=== PATIENT | female | born 1980 | race Two or more races ===

== ENCOUNTER 2024-03-02 13:51 | Outpatient (AMB) | payer OTHER, SELFPAY ==
--- NOTE | 2024-03-02 14:57 | A.OFFVIS_ITS ---
VS Expanded 03/02/24 15:03 BP 158/86 H Blood Pressure Location Rt brachial Blood Pressure Position Sitting Pulse 79 Pulse Source Pulse Oximeter Temp 97.8 F Temperature Source Temporal Artery Scan Pulse Oximetry 100 Oxygen Delivery Method Room Air Height 5 ft 2.5 in Intake Visit Reasons: metabolic group session Allergies azithromycin [From ZITHROMAX] Allergy (Severe, Verified 03/02/24 15:04) ANAPHYLAXIS acetaminophen [From VICODIN] Allergy (Intermediate, Verified 03/02/24 15:04) ITCHING prednisone [PREDNISONE] Allergy (Intermediate, Verified 03/02/24 15:04) RASH aspirin [ASPIRIN] Allergy (Mild, Verified 03/02/24 15:04) HIVES ibuprofen [IBUPROFEN] Allergy (Mild, Verified 03/02/24 15:04) HIVES Penicillins [PENICILLINS] Allergy (Mild, Verified 03/02/24 15:04) HIVES codeine [CODEINE] Allergy (Unknown, Verified 03/02/24 15:04) AGITATION From VICODIN Allergy (Intermediate, Uncoded 05/08/20 17:28) ITCHING From PERCOCET Allergy (Unknown, Uncoded 05/08/20 17:28) HIVES HPI Comments Details: Patient is a pleasant 43-year-old female who presents to the metabolic clinic. She has struggled with weight gain since trialing in-vitro fertilization therapy. She has been trialing diet and exercise and did have success in the past but since being placed on hormone therapy, she had significant weight gain. She has since discontinued IVF and had tubal ligation. She has interested in the metabolic clinic pathway although did have multiple questions about the surgical weight loss program. All of her questions were answered and at this time she would like to proceed in the metabolic clinic but may transition to a surgical option in the future. She wanted to discuss this with her . [facility] Medical History (Updated 03/02/24 @ 15:08 by Preethi Dalton CMA) Cyst, ovarian Surgical History (Updated 03/02/24 @ 15:08 by Preethi Daltno CMA) Hx of cholecystectomy Previous back surgery Family History (Updated 03/02/24 @ 15:10 by Preethi Dalton CMA) Mother Diabetes Hypertension Thyroid condition Cancer Father Back problem Hypertension Cancer Social History (Updated 03/02/24 @ 15:10 by Preethi Dalton CMA) Alcohol intake: never Patient Tobacco Use Status: Never used Tobacco Physical Exam Vital Signs: Last Vital Signs Temp 97.8 F 03/02/24 15:03 Pulse 79 03/02/24 15:03 BP 158/86 H 03/02/24 15:03 Pulse Ox 100 03/02/24 15:03 Oxygen Delivery Method Room Air 03/02/24 15:03 Assessment & Plan Assessment & Plan (1) Obesity (BMI 30-39.9): Code(s): E66.9 - Obesity, unspecified Category: Medical Plan: Patient was given my work cell phone so that she may communicate weekly with her weight and if she has any questions. She will use the right BMI samia to develop her meal plan and exercise plan. We will have her return in 1 week. Orders: Orders Basic Metabolic Panel 03/01/24 E66.9 - Obesity, unspecified Hemoglobin A1c 03/01/24 E66.9 - Obesity, unspecified
[2024-03-02 15:03] VITALS: BP 158/86; PULSE 79; TEMP 36.6; O2SAT 100
== END 2024-03-02 15:00 ==
LOC: HO.META 13:51
PROVIDERS: PCP Physician Assistant Medical; Visit Provider Physician Assistant Surgical
DX: E66.9 Obesity, unspecified (principal)

== ENCOUNTER → 2024-03-02 13:51 | Outpatient (BNVA) | payer OTHER, SELFPAY | PROVIDERS: PCP Physician Assistant Medical; Visit Provider Physician Assistant Surgical | DX: E66.9 Obesity, unspecified (principal) | CPT/HCPCS: 99453 ==

== ENCOUNTER → 2024-03-09 11:16 | Outpatient (BNVA) | payer OTHER, SELFPAY | PROVIDERS: PCP Physician Assistant Medical; Visit Provider Physician Assistant Surgical | DX: E66.9 Obesity, unspecified (principal) ==

== ENCOUNTER 2024-03-16 12:54 | Outpatient (AMB) | payer OTHER, SELFPAY ==
--- NOTE | 2024-03-16 12:17 | HO.OFFWMMET ---
VS Expanded 03/16/24 12:46 Height 5 ft 2.5 in Weight 214 lb 12.8 oz BMI 38.7 Intake Visit Reasons: Metabolic clinic Allergies azithromycin [From ZITHROMAX] Allergy (Severe, Verified 03/02/24 15:04) ANAPHYLAXIS acetaminophen [From VICODIN] Allergy (Intermediate, Verified 03/02/24 15:04) ITCHING prednisone [PREDNISONE] Allergy (Intermediate, Verified 03/02/24 15:04) RASH aspirin [ASPIRIN] Allergy (Mild, Verified 03/02/24 15:04) HIVES ibuprofen [IBUPROFEN] Allergy (Mild, Verified 03/02/24 15:04) HIVES Penicillins [PENICILLINS] Allergy (Mild, Verified 03/02/24 15:04) HIVES codeine [CODEINE] Allergy (Unknown, Verified 03/02/24 15:04) AGITATION From VICODIN Allergy (Intermediate, Uncoded 05/08/20 17:28) ITCHING From PERCOCET Allergy (Unknown, Uncoded 05/08/20 17:28) HIVES HPI Comments Details: Patient is a pleasant 43-year-old female who returns to the metabolic clinic. She was initially seen on 03/02/2024. She reports that she is trying to get to bed earlier. She is also changing shake to premier protein and bar to fit crunch and she is much more satisfied. Reports weight today of 214.8 lb with a BMI of 38. This equals 10.2 lb weight loss or 4.5% total body weight loss since initial visit. meal plan: per samia 5 sm meals per day Drinking 64 oz water exercise plan: videos at home, 45-60 minutes, 6 days per week, [id number] rojelio [facility] Medical History (Updated 03/02/24 @ 15:08 by Preethi Dalton CMA) Cyst, ovarian Surgical History (Updated 03/02/24 @ 15:08 by Preethi Dalton CMA) Hx of cholecystectomy Previous back surgery Family History (Updated 03/02/24 @ 15:10 by Preethi Dalton CMA) Mother Diabetes Hypertension Thyroid condition Cancer Father Back problem Hypertension Cancer Social History (Updated 03/02/24 @ 15:10 by Preethi Dalton CMA) Alcohol intake: never Patient Tobacco Use Status: Never used Tobacco Telehealth Telehealth Telehealth Platform: Telephone Location of provider rendering services: practice address Location of patient: address on file Patient Identification confirmed using: Name, : Yes Telehealth method: voice only Patient verbally consented to treatment: Yes Patient verbally consented to billing insurance company: Yes Patient informed of any privacy concerns related to visit: Yes Minutes spent on Phone/Video with Pt.: 20 Assessment & Plan Assessment & Plan (1) Obesity (BMI 30-39.9): Code(s): E66.9 - Obesity, unspecified Category: Medical Plan: Patient is doing very well. She has lost 10.2 lb. She is satisfied with her meal plan and is using the [employer] samia well. She continues to exercise and is very satisfied with her progress. We will continue current plans, follow-up in 1 week.
[2024-03-16 12:46] VITALS: BMI 38.7
== END 2024-03-16 12:54 | disposition home or self-care (01) ==
LOC: HO.HBS 12:54
PROVIDERS: PCP Physician Assistant Medical; Visit Provider Physician Assistant Surgical
DX: E66.9 Obesity, unspecified (principal); Z68.38 Body mass index [BMI] 38.0-38.9, adult
CPT/HCPCS: 99457

== ENCOUNTER → 2024-03-16 12:54 | Outpatient (BNVA) | payer OTHER, SELFPAY | PROVIDERS: PCP Physician Assistant Medical; Visit Provider Physician Assistant Surgical | DX: E66.9 Obesity, unspecified (principal) ==

== ENCOUNTER 2024-03-23 11:44 | Outpatient (AMB) | payer OTHER, SELFPAY ==
--- NOTE | 2024-03-23 11:35 | HO.OFFWMMET ---
VS Expanded 03/23/24 11:36 Height 5 ft 2.5 in Weight 212 lb BMI 38.2 Intake Visit Reasons: Metabolic clinic Allergies azithromycin [From ZITHROMAX] Allergy (Severe, Verified 03/02/24 15:04) ANAPHYLAXIS acetaminophen [From VICODIN] Allergy (Intermediate, Verified 03/02/24 15:04) ITCHING prednisone [PREDNISONE] Allergy (Intermediate, Verified 03/02/24 15:04) RASH aspirin [ASPIRIN] Allergy (Mild, Verified 03/02/24 15:04) HIVES ibuprofen [IBUPROFEN] Allergy (Mild, Verified 03/02/24 15:04) HIVES Penicillins [PENICILLINS] Allergy (Mild, Verified 03/02/24 15:04) HIVES codeine [CODEINE] Allergy (Unknown, Verified 03/02/24 15:04) AGITATION From VICODIN Allergy (Intermediate, Uncoded 05/08/20 17:28) ITCHING From PERCOCET Allergy (Unknown, Uncoded 05/08/20 17:28) HIVES HPI Comments Details: Patient is a pleasant 43-year-old female who returns to the metabolic clinic. She was initially seen on 03/02/2024. She reports that she is trying to get to bed earlier. She is also changing shake to premier protein and bar to fit crunch and she is much more satisfied. States she is happy with her meal plans as directed by [employer] samia. Scheduled for low back SI injections next by her occupational health specialist Exercise plan: stationary bike home video 6 x week, 45-60 min, 500 rojelio strength training w bands, 2-3 x per week Reports weight today of 2128 lb with a BMI of 38.2. This equals 13 lb weight loss or 5.7% total body weight loss since initial visit. [facility] Medical History (Updated 03/02/24 @ 15:08 by Preethi Dalton CMA) Cyst, ovarian Surgical History (Updated 03/02/24 @ 15:08 by Preethi Dalton CMA) Hx of cholecystectomy Previous back surgery Family History (Updated 03/02/24 @ 15:10 by Preethi Dalton CMA) Mother Diabetes Hypertension Thyroid condition Cancer Father Back problem Hypertension Cancer Social History (Updated 03/02/24 @ 15:10 by Preethi Dalton CMA) Alcohol intake: never Patient Tobacco Use Status: Never used Tobacco Telehealth Telehealth Telehealth Platform: Telephone Location of provider rendering services: practice address Location of patient: address on file Patient Identification confirmed using: Name, : Yes Telehealth method: voice only Patient verbally consented to treatment: Yes Patient verbally consented to billing insurance company: Yes Patient informed of any privacy concerns related to visit: Yes Minutes spent on Phone/Video with Pt.: 12 Assessment & Plan Assessment & Plan (1) Obesity (BMI 30-39.9): Code(s): E66.9 - Obesity, unspecified Category: Medical Plan: Patient is doing well overall. She will continue following the right BMI samia plan for her meal plan and exercise plan. She states that she is fixing her stationary bike seat and expect to be able to use that this coming week. She is scheduled for a low back injection through her occupational health specialist next week. She will continue to text with any questions or concerns and I will have her follow-up in approximately 2 weeks given the spine injection next week. Patient has done exceptionally well, lost 13 lb in the last 3 weeks.
[2024-03-23 11:36] VITALS: BMI 38.2
== END 2024-03-23 11:54 | disposition home or self-care (01) ==
LOC: HO.HBS 11:44
PROVIDERS: PCP Physician Assistant Medical; Visit Provider Physician Assistant Surgical
DX: E66.9 Obesity, unspecified (principal); Z68.38 Body mass index [BMI] 38.0-38.9, adult
CPT/HCPCS: 99457

== ENCOUNTER → 2024-03-23 11:44 | Outpatient (BNVA) | payer OTHER, SELFPAY | PROVIDERS: PCP Physician Assistant Medical; Visit Provider Physician Assistant Surgical | DX: E66.9 Obesity, unspecified (principal) ==

== ENCOUNTER 2024-04-06 12:42 | Outpatient (AMB) | payer OTHER, SELFPAY ==
--- NOTE | 2024-04-06 12:23 | MHC.OFFVISWM ---
VS Expanded 04/06/24 12:24 Height 5 ft 2.5 in Weight 203 lb 4 oz BMI 36.6 Intake Visit Reasons: Metabolic clinic Allergies azithromycin [From ZITHROMAX] Allergy (Severe, Verified 03/02/24 15:04) ANAPHYLAXIS acetaminophen [From VICODIN] Allergy (Intermediate, Verified 03/02/24 15:04) ITCHING prednisone [PREDNISONE] Allergy (Intermediate, Verified 03/02/24 15:04) RASH aspirin [ASPIRIN] Allergy (Mild, Verified 03/02/24 15:04) HIVES ibuprofen [IBUPROFEN] Allergy (Mild, Verified 03/02/24 15:04) HIVES Penicillins [PENICILLINS] Allergy (Mild, Verified 03/02/24 15:04) HIVES codeine [CODEINE] Allergy (Unknown, Verified 03/02/24 15:04) AGITATION From VICODIN Allergy (Intermediate, Uncoded 05/08/20 17:28) ITCHING From PERCOCET Allergy (Unknown, Uncoded 05/08/20 17:28) HIVES HPI Comments Details: Patient is a pleasant 43-year-old female who returns to the metabolic clinic. She was initially seen on 03/02/2024. She reports that she is trying to get to bed earlier. She is also changing shake to premier protein and bar to fit crunch and she is much more satisfied. States she is happy with her meal plans as directed by [employer] samia. Had low back SI injections last by her client success specialist. It was painful but now much better. Complains of constipation BM every 3-4 days Meal plan: Premier protein 1/2 scoop 2 x per day atkins bar 1-1 1/2 meal 7 folrs protein and 7 forks veggies Exercise plan: stationary bike home video 6 x week, 45-60 min, 500-600 rojelio strength training w bands, 2-3 x per week Reports weight today of 203.4 lb with a BMI of 36.1. This equals 21.6 lb weight loss or 9.6% total body weight loss since initial visit. [facility] Medical History (Updated 03/02/24 @ 15:08 by Preethi Dalton CMA) Cyst, ovarian Surgical History (Updated 03/02/24 @ 15:08 by Preethi Dalton CMA) Hx of cholecystectomy Previous back surgery Family History (Updated 03/02/24 @ 15:10 by Preethi Dalton CMA) Mother Diabetes Hypertension Thyroid condition Cancer Father Back problem Hypertension Cancer Social History (Updated 03/02/24 @ 15:10 by Preethi Dalton CMA) Alcohol intake: never Patient Tobacco Use Status: Never used Tobacco Assessment & Plan Assessment & Plan Medications: New sennosides (senna) 17.2 mg (2 x 8.6 mg) PO BEDTIME PRN 90 tabs 0RF constipation
[2024-04-06 12:24] VITALS: BMI 36.6
--- NOTE | 2024-04-06 12:38 | HO.OFFWMMET ---
VS Expanded 04/06/24 12:24 Height 5 ft 2.5 in Weight 203 lb 4 oz BMI 36.6 Intake Visit Reasons: Metabolic clinic Allergies azithromycin [From ZITHROMAX] Allergy (Severe, Verified 03/02/24 15:04) ANAPHYLAXIS acetaminophen [From VICODIN] Allergy (Intermediate, Verified 03/02/24 15:04) ITCHING prednisone [PREDNISONE] Allergy (Intermediate, Verified 03/02/24 15:04) RASH aspirin [ASPIRIN] Allergy (Mild, Verified 03/02/24 15:04) HIVES ibuprofen [IBUPROFEN] Allergy (Mild, Verified 03/02/24 15:04) HIVES Penicillins [PENICILLINS] Allergy (Mild, Verified 03/02/24 15:04) HIVES codeine [CODEINE] Allergy (Unknown, Verified 03/02/24 15:04) AGITATION From VICODIN Allergy (Intermediate, Uncoded 05/08/20 17:28) ITCHING From PERCOCET Allergy (Unknown, Uncoded 05/08/20 17:28) HIVES HPI Comments Details: Patient is a pleasant 43-year-old female who returns to the metabolic clinic. She was initially seen on 03/02/2024. She reports that she is trying to get to bed earlier. She is also changing shake to premier protein and bar to atkins and she is much more satisfied. States she is happy with her meal plans as directed by [employer] samia. Had low back SI injections last by her curriculum development specialist. It was painful but now much better. Complains of constipation BM every 3-4 days, but reflux is much better. Only requiring PPI once daily Meal plan: Premier protein 1/2 scoop 2 x per day atkins bar 1-1 1/2 meal 7 folrs protein and 7 forks veggies Exercise plan: stationary bike home video 6 x week, 45-60 min, 500-600 rojelio strength training w bands, 2-3 x per week Reports weight today of 203.4 lb with a BMI of 36.1. This equals 21.6 lb weight loss or 9.6% total body weight loss since initial visit. [facility] Medical History (Updated 03/02/24 @ 15:08 by Preethi Dalton CMA) Cyst, ovarian Surgical History (Updated 03/02/24 @ 15:08 by Preethi Dalton CMA) Hx of cholecystectomy Previous back surgery Family History (Updated 03/02/24 @ 15:10 by Preethi Dalton CMA) Mother Diabetes Hypertension Thyroid condition Cancer Father Back problem Hypertension Cancer Social History (Updated 03/02/24 @ 15:10 by Preethi Dalton CMA) Alcohol intake: never Patient Tobacco Use Status: Never used Tobacco Physical Exam Vital Signs: BMI result Body Mass Index 36.6 Quality Reporting (2019) Adult ([facility] 138/69) Body Mass Index: 36.6 Telehealth Telehealth Telehealth Platform: Telephone Location of provider rendering services: practice address Location of patient: address on file Patient Identification confirmed using: Name, : Yes Telehealth method: voice only Patient verbally consented to treatment: Yes Patient verbally consented to billing insurance company: Yes Patient informed of any privacy concerns related to visit: Yes Minutes spent on Phone/Video with Pt.: 15 Assessment & Plan Assessment & Plan (1) Obesity (BMI 30-39.9): Code(s): E66.9 - Obesity, unspecified Category: Medical Plan: Overall, patient is doing very well. She is making tremendous progress. She continues with the meal plan as directed from the [employer]. She has been exercising as she is able given the recent back injections. She is going to [place] to bring back her mother. She will come back to the clinic in approximately 2 weeks Add senna for constipation Medications: New sennosides (senna) 17.2 mg (2 x 8.6 mg) PO BEDTIME PRN 90 tabs 0RF constipation
[2024-04-06 12:40] VITALS: BMI 36.6
== END 2024-04-06 12:50 | disposition home or self-care (01) ==
LOC: HO.HBS 12:42
PROVIDERS: PCP Physician Assistant Medical; Visit Provider Physician Assistant Surgical
DX: E66.9 Obesity, unspecified (principal); Z68.36 Body mass index [BMI] 36.0-36.9, adult
CPT/HCPCS: 99457

== ENCOUNTER → 2024-04-06 12:42 | Outpatient (BNVA) | payer OTHER, SELFPAY | PROVIDERS: PCP Physician Assistant Medical; Visit Provider Physician Assistant Surgical | DX: E66.9 Obesity, unspecified (principal) ==

== ENCOUNTER 2024-04-20 12:41 | Outpatient (AMB) | payer OTHER, SELFPAY ==
--- NOTE | 2024-04-20 08:25 | A.OFFVIS_ITS ---
VS Expanded 04/20/24 08:26 Height 5 ft 2.5 in Weight 199 lb 4 oz BMI 35.9 Intake Visit Reasons: Metabolic clinic Allergies azithromycin [From ZITHROMAX] Allergy (Severe, Verified 03/02/24 15:04) ANAPHYLAXIS acetaminophen [From VICODIN] Allergy (Intermediate, Verified 03/02/24 15:04) ITCHING prednisone [PREDNISONE] Allergy (Intermediate, Verified 03/02/24 15:04) RASH aspirin [ASPIRIN] Allergy (Mild, Verified 03/02/24 15:04) HIVES ibuprofen [IBUPROFEN] Allergy (Mild, Verified 03/02/24 15:04) HIVES Penicillins [PENICILLINS] Allergy (Mild, Verified 03/02/24 15:04) HIVES codeine [CODEINE] Allergy (Unknown, Verified 03/02/24 15:04) AGITATION From VICODIN Allergy (Intermediate, Uncoded 05/08/20 17:28) ITCHING From PERCOCET Allergy (Unknown, Uncoded 05/08/20 17:28) HIVES HPI Comments Details: Patient is a very pleasant 43-year-old female who returns to the metabolic clinic. She initially presented in mid 03/10/2024, 03/02/2024 with a weight of 225 lb. Weight today is 199.4 lb with a BMI of 35.3. She has lost 25.6 lb or 11.3% total body weight loss. She has been using the right BMI dot com applicat ion. Meal plan: Premier protein 1/2 scoop 2 x per day atkins bar 1-1 1/2 meal 7 folks protein and 7 forks veggies Exercise plan: stationary bike home video 7 x week, 45-60 min, 600 rojelio strength training w bands, 2-3 x per week [facility] Medical History (Updated 03/02/24 @ 15:08 by Preethi Dalton CMA) Cyst, ovarian Surgical History (Updated 03/02/24 @ 15:08 by Preethi Dalton CMA) Hx of cholecystectomy Previous back surgery Family History (Updated 03/02/24 @ 15:10 by Preethi Dalton CMA) Mother Diabetes Hypertension Thyroid condition Cancer Father Back problem Hypertension Cancer Social History (Updated 03/02/24 @ 15:10 by Preethi Dalton CMA) Alcohol intake: never Patient Tobacco Use Status: Never used Tobacco
[2024-04-20 08:26] VITALS: BMI 35.9
--- NOTE | 2024-04-20 12:56 | HO.OFFWMMET ---
VS Expanded 04/20/24 08:26 Height 5 ft 2.5 in Weight 199 lb 4 oz BMI 35.9 Intake Visit Reasons: Metabolic clinic Key Account Director Required: No Allergies azithromycin [From ZITHROMAX] Allergy (Severe, Verified 03/02/24 15:04) ANAPHYLAXIS acetaminophen [From VICODIN] Allergy (Intermediate, Verified 03/02/24 15:04) ITCHING prednisone [PREDNISONE] Allergy (Intermediate, Verified 03/02/24 15:04) RASH aspirin [ASPIRIN] Allergy (Mild, Verified 03/02/24 15:04) HIVES ibuprofen [IBUPROFEN] Allergy (Mild, Verified 03/02/24 15:04) HIVES Penicillins [PENICILLINS] Allergy (Mild, Verified 03/02/24 15:04) HIVES codeine [CODEINE] Allergy (Unknown, Verified 03/02/24 15:04) AGITATION From VICODIN Allergy (Intermediate, Uncoded 05/08/20 17:28) ITCHING From PERCOCET Allergy (Unknown, Uncoded 05/08/20 17:28) HIVES Medication List - Last Reconciled 04/20/24 by SRAVANTHI Hernandez labetalol 200 mg PO BID levocetirizine 5 mg PO DAILY mecobalamin (vitamin B12) 5,000 mcg PO DAILY multivitamin with iron (Daily Vites/Iron tablet) 1 tab PO DAILY omeprazole 40 mg PO DAILY sennosides (senna) 17.2 mg (2 x 8.6 mg) PO BEDTIME PRN HPI Comments Details: Patient is a very pleasant 43-year-old female who returns to the metabolic clinic. She initially presented in mid 03/10/2024, 03/02/2024 with a weight of 225 lb. Weight today is 199.4 lb with a BMI of 35.3. She has lost 25.6 lb or 11.3% total body weight loss. She has been using the [employer] application. Meal plan: Premier protein 1/2 scoop 2 x per day atkins bar 1-1 1/2 meal 7 folks protein and 7 forks veggies Exercise plan: stationary bike home video 7 x week, 45-60 min, 600 rojelio strength training w bands, 2-3 x per week [facility] Medical History Cyst, ovarian Surgical History Hx of cholecystectomy Previous back surgery Family History Mother Diabetes Hypertension Thyroid condition Cancer Father Back problem Hypertension Cancer Social History Alcohol intake: never Patient Tobacco Use Status: Never used Tobacco Physical Exam Vital Signs: BMI result Body Mass Index 35.9 Quality Reporting (2020) Adult ([facility] 13810/13/68) Body Mass Index: 35.9 Telehealth Telehealth Telehealth Platform: Telephone Location of provider rendering services: practice address Location of patient: address on file Patient Identification confirmed using: Name, : Yes Telehealth method: voice only Patient verbally consented to treatment: Yes Patient verbally consented to billing insurance company: Yes Patient informed of any privacy concerns related to visit: Yes Minutes spent on Phone/Video with Pt.: 15 Assessment & Plan Assessment & Plan (1) Obesity (BMI 30-39.9): Code(s): E66.9 - Obesity, unspecified Category: Medical Plan: Patient is doing exceptionally well. She is following the meal plan on the right BMI samia. She is exercising appropriately she feels great. I have encouraged her to continue following the meal plans updating the samia weekly with her new weights. Encouraged continued exercise. Text weekly with weights and if any questions or concerns. We will have her return to the office in approximately 2 weeks.
[2024-04-20 12:57] VITALS: BMI 35.9
== END 2024-04-20 12:57 | disposition home or self-care (01) ==
LOC: HO.HBS 12:41
PROVIDERS: PCP Physician Assistant Medical; Visit Provider Physician Assistant Surgical
DX: E66.9 Obesity, unspecified (principal); Z68.35 Body mass index [BMI] 35.0-35.9, adult
CPT/HCPCS: 99457

== ENCOUNTER → 2024-04-20 12:41 | Outpatient (BNVA) | payer OTHER, SELFPAY | PROVIDERS: PCP Physician Assistant Medical; Visit Provider Physician Assistant Surgical | DX: E66.9 Obesity, unspecified (principal) ==

== ENCOUNTER 2024-05-04 11:08 | Outpatient (AMB) | payer OTHER, SELFPAY ==
--- NOTE | 2024-05-04 10:43 | HO.OFFWMMET ---
VS Expanded 05/04/24 10:45 Height 5 ft 2.5 in Weight 194 lb BMI 34.9 Body Fat % 43.4 Fat Free Mass 109.8 Visceral Fat Rating 16 Body Water % 38.8 Intake Visit Reasons: Metabolic clinic [employer] Counter Associate Required: No Allergies azithromycin [From ZITHROMAX] Allergy (Severe, Verified 03/02/24 15:04) ANAPHYLAXIS acetaminophen [From VICODIN] Allergy (Intermediate, Verified 03/02/24 15:04) ITCHING prednisone [PREDNISONE] Allergy (Intermediate, Verified 03/02/24 15:04) RASH aspirin [ASPIRIN] Allergy (Mild, Verified 03/02/24 15:04) HIVES ibuprofen [IBUPROFEN] Allergy (Mild, Verified 03/02/24 15:04) HIVES Penicillins [PENICILLINS] Allergy (Mild, Verified 03/02/24 15:04) HIVES codeine [CODEINE] Allergy (Unknown, Verified 03/02/24 15:04) AGITATION From VICODIN Allergy (Intermediate, Uncoded 05/08/20 17:28) ITCHING From PERCOCET Allergy (Unknown, Uncoded 05/08/20 17:28) HIVES Medication List - Last Reconciled 05/04/24 by SRAVANTHI Hernandez labetalol 200 mg PO BID levocetirizine 5 mg PO DAILY mecobalamin (vitamin B12) 5,000 mcg PO DAILY multivitamin with iron (Daily Vites/Iron tablet) 1 tab PO DAILY omeprazole 40 mg PO DAILY polyethylene glycol 3350 (Miralax) 17 grams PO DAILY HPI Comments Details: Patient is a very pleasant 43-year-old female who returns to the metabolic clinic. She initially presented in mid 03/10/2024, 03/02/2024 with a weight of 225 lb. Weight today is 194 lb with a BMI of 34.9. She has lost 31 lb or 13.7% total body weight loss. She has been using the [employer] application. Seen GI and there was concern over lifelong GERD, continued treatment conservatively, possible intervention in 6 months. Continues to follow w GI. Meal plan: Premier protein 1/2 scoop 2 x per day atkins bar 1-1 1/2 meal 6 folks protein and 6 forks veggies Exercise plan: stationary bike home video 7 x week, 45-60 min, 500-600 rojelio strength training w bands, 2-3 x per week PFSH Medical History Cyst, ovarian Surgical History Hx of cholecystectomy Previous back surgery Family History Mother Diabetes Hypertension Thyroid condition Cancer Father Back problem Hypertension Cancer Social History Alcohol intake: never Patient Tobacco Use Status: Never used Tobacco Telehealth Telehealth Telehealth Platform: Telephone Location of provider rendering services: practice address Location of patient: address on file Patient Identification confirmed using: Name, : Yes Telehealth method: voice only Patient verbally consented to treatment: Yes Patient verbally consented to billing insurance company: Yes Patient informed of any privacy concerns related to visit: Yes Minutes spent on Phone/Video with Pt.: 15 Assessment & Plan Assessment & Plan (1) Obesity (BMI 30-39.9): Code(s): E66.9 - Obesity, unspecified Category: Medical Plan: Patient is doing very well. She has lost 31 lb or 13.7% total body weight loss. She is following the right BMI samia. she is exercising appropriately. She will continue current meal plan and exercise plan. Encouraged to send weight is weekly. Text with any questions or concerns. Follow-up 2 weeks.
[2024-05-04 10:45] VITALS: BMI 34.9
== END 2024-05-04 11:27 | disposition home or self-care (01) ==
LOC: HO.HBS 11:08
PROVIDERS: PCP Physician Assistant Medical; Visit Provider Physician Assistant Surgical
DX: E66.9 Obesity, unspecified (principal); Z68.34 Body mass index [BMI] 34.0-34.9, adult
CPT/HCPCS: 99457

== ENCOUNTER → 2024-05-04 11:08 | Outpatient (BNVA) | payer OTHER, SELFPAY | PROVIDERS: PCP Physician Assistant Medical; Visit Provider Physician Assistant Surgical | DX: E66.9 Obesity, unspecified (principal) ==

== ENCOUNTER → 2024-05-25 13:30 | Outpatient (BNVA) | payer OTHER, SELFPAY | PROVIDERS: PCP Physician Assistant Medical; Visit Provider Physician Assistant Surgical | DX: E66.9 Obesity, unspecified (principal) ==

== ENCOUNTER 2024-06-08 13:17 | Outpatient (AMB) | payer OTHER, SELFPAY ==
--- NOTE | 2024-06-08 13:10 | HO.OFFWMMET ---
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 Allergies azithromycin [From ZITHROMAX] Allergy (Severe, Verified 03/02/24 15:04) ANAPHYLAXIS acetaminophen [From VICODIN] Allergy (Intermediate, Verified 03/02/24 15:04) ITCHING prednisone [PREDNISONE] Allergy (Intermediate, Verified 03/02/24 15:04) RASH aspirin [ASPIRIN] Allergy (Mild, Verified 03/02/24 15:04) HIVES ibuprofen [IBUPROFEN] Allergy (Mild, Verified 03/02/24 15:04) HIVES Penicillins [PENICILLINS] Allergy (Mild, Verified 03/02/24 15:04) HIVES codeine [CODEINE] Allergy (Unknown, Verified 03/02/24 15:04) AGITATION From VICODIN Allergy (Intermediate, Uncoded 05/08/20 17:28) ITCHING From PERCOCET Allergy (Unknown, Uncoded 05/08/20 17:28) HIVES Medication List - Last Reconciled 06/08/24 by SRAVANTHI Hernandez labetalol 100 mg PO DAILY levocetirizine 5 mg PO DAILY mecobalamin (vitamin B12) 5,000 mcg PO DAILY multivitamin with iron (Daily Vites/Iron tablet) 1 tab PO DAILY omeprazole 40 mg PO DAILY polyethylene glycol 3350 (Miralax) 17 grams PO DAILY HPI Comments Details: Patient is a very pleasant 43-year-old female who returns to the metabolic clinic. She initially presented in mid 03/10/2024, 03/02/2024 with a weight of 225 lb. Weight today is 180 lb with a BMI of 31.9. She has lost 45 lb or 20% total body weight loss. She has been using the [email or web address] application. Seen GI and there was concern over lifelong GERD, continued treatment conservatively, possible intervention in 6 months. Continues to follow w GI. She is dealing with the beginning of the school year. She has had noticed that her BP has been running 110-120/70-80, HR 60s-70s, no c/o lightheadedness, Labetalol decreased to 100 mg po daily Still has right LBP and hip pain, saw her insurance billing specialist Dr Garg in [place] and he referred her to [facility] [place] 06/18/24. Consideration for second opinion w ting invasive insurance billing specialist at [facility] tbd by pain management. Overall she is doing great and is very satisfied with her progress Meal plan: Premier protein 1/2 scoop 2 x per day atkins bar 1-1 1/2 meal 6 folks protein and 6 forks veggies Drinking 64-80 oz water Exercise plan: home video 7 x week, 60-90 min, 500-600 rojelio strength training w bands, 2-3 x per week PFSH Medical History Cyst, ovarian Surgical History Hx of cholecystectomy Previous back surgery Family History Mother Diabetes Hypertension Thyroid condition Cancer Father Back problem Hypertension Cancer Social History Alcohol intake: never Patient Tobacco Use Status: Never used Tobacco Telehealth Telehealth Telehealth Platform: Telephone Location of provider rendering services: practice address Location of patient: address on file Patient Identification confirmed using: Name, : Yes Telehealth method: voice only Patient verbally consented to treatment: Yes Patient verbally consented to billing insurance company: Yes Patient informed of any privacy concerns related to visit: Yes Minutes spent on Phone/Video with Pt.: 15 Assessment & Plan Assessment & Plan (1) Obesity (BMI 30-39.9): Code(s): E66.9 - Obesity, unspecified Category: Medical Plan: Making excellent progress utilizing the right BMI application. She has lost a total of 45 lb in 3 months or 20% total body weight loss. She will continue following the plans including meal plan and exercise. We will have her return to the clinic in approximately 3 weeks. Encouraged to continue to text weekly and with any questions or concerns.
[2024-06-08 13:11] VITALS: BMI 32.4
== END 2024-06-08 13:20 | disposition home or self-care (01) ==
LOC: HO.HBS 13:17
PROVIDERS: PCP Physician Assistant Medical; Visit Provider Physician Assistant Surgical
DX: E66.9 Obesity, unspecified (principal)
CPT/HCPCS: 99457

== ENCOUNTER → 2024-06-08 13:17 | Outpatient (BNVA) | payer OTHER, SELFPAY | PROVIDERS: PCP Physician Assistant Medical; Visit Provider Physician Assistant Surgical | DX: E66.9 Obesity, unspecified (principal) ==

== ENCOUNTER 2024-06-29 12:43 | Outpatient (AMB) | payer OTHER, SELFPAY ==
--- NOTE | 2024-06-29 08:34 | MHC.OFFVISWM ---
VS Expanded 06/29/24 12:38 Height 5 ft 2.5 in Weight 172 lb BMI 31.0 Intake Visit Reasons: Metabolic Clinic Allergies azithromycin [From ZITHROMAX] Allergy (Severe, Verified 03/02/24 15:04) ANAPHYLAXIS acetaminophen [From VICODIN] Allergy (Intermediate, Verified 03/02/24 15:04) ITCHING prednisone [PREDNISONE] Allergy (Intermediate, Verified 03/02/24 15:04) RASH aspirin [ASPIRIN] Allergy (Mild, Verified 03/02/24 15:04) HIVES ibuprofen [IBUPROFEN] Allergy (Mild, Verified 03/02/24 15:04) HIVES Penicillins [PENICILLINS] Allergy (Mild, Verified 03/02/24 15:04) HIVES codeine [CODEINE] Allergy (Unknown, Verified 03/02/24 15:04) AGITATION From VICODIN Allergy (Intermediate, Uncoded 05/08/20 17:28) ITCHING From PERCOCET Allergy (Unknown, Uncoded 05/08/20 17:28) HIVES HPI Comments Details: Patient is a very pleasant 43-year-old female who returns to the metabolic clinic. She initially presented in mid 03/10/2024, 03/02/2024 with a weight of 225 lb. Weight today is 172 lb with a BMI of 30.5. She has lost 53 lb or 23.5% total body weight loss. She has been using the [employer] application. Seen GI and there was concern over lifelong GERD, continued treatment conservatively, possible intervention in 6 months. Continues to follow w GI. She is dealing with the beginning of the school year. She has had noticed that her BP has been running 110-120/70-80, HR 60s-70s, no c/o lightheadedness, Labetalol decreased to 100 mg po daily Still has right LBP and hip pain, saw her product test specialist Dr Garg in [place] and he referred her to [facility] pain management 07/11/24. Much better than it was. Consideration for second opinion w min invasive product test specialist at [facility] tbd by pain management. Continues with right knee pain. Continues to exercise though. Overall she is doing great and is very satisfied with her progress Meal plan: Premier protein 1/2 scoop 2 x per day atkins bar 1-1 1/2 meal 6 folks protein and 6 forks veggies Drinking 64-80 oz water Exercise plan: home video 7 x week, 60-90 min, 500-600 rojelio, HIIT, kickboxing, stationary bike strength training w bands, 2-3 x per week PFSH Medical History Cyst, ovarian Surgical History Hx of cholecystectomy Previous back surgery Family History Mother Diabetes Hypertension Thyroid condition Cancer Father Back problem Hypertension Cancer Social History Alcohol intake: never Patient Tobacco Use Status: Never used Tobacco
[2024-06-29 12:38] VITALS: BMI 31.0
--- NOTE | 2024-06-29 12:50 | HO.OFFWMMET ---
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 Allergies azithromycin [From ZITHROMAX] Allergy (Severe, Verified 03/02/24 15:04) ANAPHYLAXIS acetaminophen [From VICODIN] Allergy (Intermediate, Verified 03/02/24 15:04) ITCHING prednisone [PREDNISONE] Allergy (Intermediate, Verified 03/02/24 15:04) RASH aspirin [ASPIRIN] Allergy (Mild, Verified 03/02/24 15:04) HIVES ibuprofen [IBUPROFEN] Allergy (Mild, Verified 03/02/24 15:04) HIVES Penicillins [PENICILLINS] Allergy (Mild, Verified 03/02/24 15:04) HIVES codeine [CODEINE] Allergy (Unknown, Verified 03/02/24 15:04) AGITATION From VICODIN Allergy (Intermediate, Uncoded 05/08/20 17:28) ITCHING From PERCOCET Allergy (Unknown, Uncoded 05/08/20 17:28) HIVES Medication List - Last Reconciled 06/29/24 by SRAVANTHI Hernandez labetalol 100 mg PO DAILY levocetirizine 5 mg PO DAILY mecobalamin (vitamin B12) 5,000 mcg PO DAILY multivitamin with iron (Daily Vites/Iron tablet) 1 tab PO DAILY omeprazole 40 mg PO DAILY polyethylene glycol 3350 (Miralax) 17 grams PO DAILY HPI Comments Details: Patient is a very pleasant 43-year-old female who returns to the metabolic clinic. She initially presented in mid 03/10/2024, 03/02/2024 with a weight of 225 lb. Weight today is 172 lb with a BMI of 30.5. She has lost 53 lb or 23.5% total body weight loss. She has been using the [employer] application. Seen GI and there was concern over lifelong GERD, continued treatment conservatively, possible intervention in 6 months. Continues to follow w GI. She is dealing with the beginning of the school year. She has had noticed that her BP has been running 110-120/70-80, HR 60s-70s, no c/o lightheadedness, Labetalol decreased to 100 mg po daily Still has right LBP and hip pain, saw her housing development specialist Dr Garg in [place] and he referred her to [facility] pain management 07/11/24. Much better than it was. Consideration for second opinion w min invasive housing development specialist at [facility] tbd by pain management. Continues with right knee pain. Continues to exercise though. Overall she is doing great and is very satisfied with her progress Meal plan: Premier protein 1/2 scoop 2 x per day atkins bar 1-1 1/2 meal 6 folks protein and 6 forks veggies Drinking 64-80 oz water Exercise plan: home video 7 x week, 60-90 min, 500-600 rojelio, HIIT, kickboxing, stationary bike strength training w bands, 2-3 x per week PFSH Medical History Cyst, ovarian Surgical History Hx of cholecystectomy Previous back surgery Family History Mother Diabetes Hypertension Thyroid condition Cancer Father Back problem Hypertension Cancer Social History Alcohol intake: never Patient Tobacco Use Status: Never used Tobacco Physical Exam Vital Signs: BMI result Body Mass Index 31.0 Quality Reporting (2019) Adult ([facility] 138/10/13/68) Body Mass Index: 31.0 Telehealth Telehealth Telehealth Platform: Telephone Location of provider rendering services: practice address Location of patient: address on file Patient Identification confirmed using: Name, : Yes Telehealth method: voice only Patient verbally consented to treatment: Yes Patient verbally consented to billing insurance company: Yes Patient informed of any privacy concerns related to visit: Yes Minutes spent on Phone/Video with Pt.: 15 Assessment & Plan Assessment & Plan (1) Obesity (BMI 30-39.9): Code(s): E66.9 - Obesity, unspecified Category: Medical Plan: Patient is making excellent progress. She continues to follow the recommendations on the plans. Exercising as much as she is able. She is scheduled to follow-up with pain management later this month, possible referral to minimally invasive spine surgery here at [facility].
[2024-06-29 12:53] VITALS: BMI 31.0
== END 2024-06-29 12:52 | disposition home or self-care (01) ==
LOC: HO.HBS 12:44
PROVIDERS: PCP Physician Assistant Medical; Visit Provider Physician Assistant Surgical
DX: E66.9 Obesity, unspecified (principal)
CPT/HCPCS: 99457

== ENCOUNTER → 2024-06-29 12:43 | Outpatient (BNVA) | payer OTHER, SELFPAY | PROVIDERS: PCP Physician Assistant Medical; Visit Provider Physician Assistant Surgical ==

== ENCOUNTER 2024-07-11 10:28 | Outpatient (AMB) | payer OTHER, SELFPAY ==
[2024-07-11 10:35] VITALS: BP 142/80; PULSE 72; RESP 16; O2SAT 100; BMI 31.3
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
== END 2024-07-11 11:11 | disposition home or self-care (01) ==
PROVIDERS: PCP Physician Assistant Medical; Visit Provider Internal Medicine
DX: M25.561 Pain in right knee (principal); M25.562 Pain in left knee; M54.51 Vertebrogenic low back pain; M51.369 Other intervertebral disc degeneration, lumbar region without mention of lumbar back pain or lower extremity pain
CPT/HCPCS: 99204

== ENCOUNTER 2024-07-11 10:28 | Outpatient (REF) | payer OTHER, SELFPAY ==
--- NOTE | ~2024-07-11 | XR_ITS ---
EXAMINATION: XR KNEE AP STANDING CLINICAL INFORMATION: Right knee pain. COMPARISON: None available. TECHNIQUE: AP bilateral standing view of the knees was obtained. FINDINGS: No fracture or joint effusion. Alignment is anatomic. Joint spaces are maintained. No abnormal soft tissue calcification. XR/XR knee standing BI IMPRESSION: Unremarkable examination. Electronically signed by: Rodriguez Hanna MD 07/11/2024 01:18 PM [facility]
== END 2024-07-11 10:29 | disposition home or self-care (01) ==
LOC: HO.XRAY 10:28
PROVIDERS: PCP Physician Assistant Medical; Visit Provider Internal Medicine
DX: M25.561 Pain in right knee (principal); M25.562 Pain in left knee
CPT/HCPCS: 73565